=== PATIENT | female | born 1990 | race Caucasian/White ===

== ENCOUNTER 2017-08-18 18:30 | Observation (INO) | payer OTHER ==
[~2017-08-18] VITALS: Ht 157.5 cm; Wt 59.0 kg
[2017-08-18 19:12] LABS: BASOPHILS # (AUTO) 0.1 (0.0-0.1); BASOPHILS % 0.3 % (0.0-1.0); LYMPHOCYTES # (AUTO) 0.9 (1.0-3.2); LYMPHOCYTES % 4.1 % (18.0-39.1); MEAN CORPUSCULAR HGB CONC 33.3 g/dL (31-35); MEAN CORPUSCULAR VOLUME 89.9 fL (81-99); MONOCYTES # (AUTO) 0.8 (0.2-0.8); MONOCYTES % 3.7 % (4.4-11.3); NEUTROPHILS # (AUTO) 19.6 (2.1-6.9); NEUTROPHILS % 91.2 % (38.7-80.0); PLATELET COUNT 290 x10e3/uL (140-360); RED BLOOD COUNT 4.34 x10e6/uL (3.6-5.1); RED CELL DISTRIBUTION WIDTH 13.4 % (11.7-14.4)
[2017-08-18 19:17] LABS: BILIRUBIN,URINE NEGATIVE (NEGATIVE); CLARITY,URINE SL CLOUDY (CLEAR); COLOR,URINE YELLOW (YELLOW); KETONES,URINE 2+ (NEGATIVE); LEUKOCYTE ESTERASE ,URINE NEGATIVE (NEGATIVE); NITRITE,URINE NEGATIVE (NEGATIVE); PROTEIN,URINE DIPSTICK TRACE (NEGATIVE); URINE UROBILINOGEN 0.2 mg/dL (0.2 - 1)
[2017-08-18 19:26] LABS: ALANINE AMINOTRANSFERASE 10 IU/L (0-55); ALBUMIN 4.3 g/dL (3.5-5.0); ALBUMIN/GLOBULIN RATIO 1.1 (0.8-2.0); ALKALINE PHOSPHATASE 56 IU/L (40-150); ANION GAP 12.9 mmol/L (8-16); BLOOD UREA NITROGEN 16 mg/dL (7-26); BUN/CREATININE RATIO 18 (6-25); CALCIUM 9.5 mg/dL (8.4-10.2); CARBON DIOXIDE 27 mmol/L (22-29); CHLORIDE 103 mmol/L (98-107); CREATININE, SERUM 0.89 mg/dL (0.57-1.11); EST GLOMERULAR FILTRATION RATE > 60 ML/MIN (60-); GLUCOSE 104 mg/dL (74-118); POTASSIUM 3.9 mmol/L (3.5-5.1); SODIUM 139 mmol/L (136-145)
[2017-08-18 19:30] LABS: PREGNANCY TEST, URINE NEGATIVE (NEGATIVE)
[2017-08-18 19:31] LABS: RBC,URINE 21-50 /HPF (0-5); WBC,URINE (MAN) 0-5 /HPF (0-5)
[2017-08-18 19:32] LABS: EPITHELIAL CELLS,URINE RARE /LPF
--- NOTE | 2017-08-18 21:56 | Diagnostic Imaging Report ---
EXAM: CT Abdomen and Pelvis WITHOUT contrast INDICATION: Flank pain, back pain and left-sided COMPARISON: None. TECHNIQUE: Abdomen and pelvis were scanned utilizing a multidetector helical scanner from the lung base to the pubic symphysis without administration of IV contrast. Absence of intravenous contrast decreases sensitivity for detection of focal lesions and vascular pathology. Coronal and sagittal reformations were obtained. Stone protocol is performed. IV CONTRAST: None. ORAL CONTRAST: None RADIATION DOSE: Total DLP: 212.5 mGy*cm Estimated effective dose: (DLP x 0.015 x size factor) mSv COMPLICATIONS: None FINDINGS: LINES and TUBES: None. LOWER THORAX: Unremarkable HEPATOBILIARY: No focal hepatic lesions. No biliary ductal dilation. GALLBLADDER: No radio-opaque stones or sludge. No wall thickening. SPLEEN: No splenomegaly. PANCREAS: No focal masses or ductal dilatation. ADRENALS: No adrenal nodules KIDNEYS/URETERS: No hydronephrosis. No cystic or solid mass lesions. 2 mm stone visualized in the inferior renal collecting system of the right kidney, best seen on series 3, image 60 and coronal image 45 GI TRACT: No abnormal distention, wall thickening, or evidence of bowel obstruction. Appendix is not clearly identified. There is however no fat stranding or adenopathy in the right lower quadrant to suggest appendicitis. PELVIC ORGANS/BLADDER: Unremarkable. LYMPH NODES: No lymphadenopathy. VESSELS: Unremarkable. PERITONEUM / RETROPERITONEUM: No free air or fluid. BONES: Levoscoliosis of the lower lumbar spine SOFT TISSUES: Bilateral breast implants are partially visualized. IMPRESSION: 1. Right-sided nephrolithiasis without hydronephrosis. 2. No tomographic abnormality to explain left-sided flank pain Signed by: Dr. Dane Negron M.D. on 08/18/2017 9:53 PM
[2017-08-18] MEDS ORDERED: KETOROLAC TROMETHAMINE 30 MG/ML VIAL IV STA (22:01)
[2017-08-18] MEDS ORDERED: ONDANSETRON HCL INJ 2 MG/ML VIAL IV STA (22:01)
[2017-08-18] MEDS ORDERED: CEFTRIAXONE SOD 1 GM VIAL IV STA (22:01)
[2017-08-18] MEDS ORDERED: SODIUM CHLORIDE 0.9% 1000ML 1,000 ML IV ONE (22:15)
[2017-08-18] MEDS ORDERED: ONDANSETRON HCL INJ 2 MG/ML VIAL IV PRN (22:30)
[2017-08-18] MEDS ORDERED: CEFTRIAXONE SOD 1 GM VIAL IV SCH (22:30)
[2017-08-18] MEDS ORDERED: HYDROMORPHONE 1MG/1ML INJ IV PRN (22:30)
[2017-08-18] MEDS ORDERED: ACETAMINOPHEN 325 MG TAB PO PRN (22:30)
[2017-08-18] MEDS: SODIUM CHLORIDE 0.9% 1000ML 1,000 ML IV SCH (23:08)
[2017-08-19] VITALS (7 sets, daily range): BP systolic 99–183; BP diastolic 52–81
[2017-08-19 07:07] LABS: BASOPHILS # (AUTO) 0.1 (0.0-0.1); BASOPHILS % 0.6 % (0.0-1.0); EOSINOPHILS # (AUTO) 0.1 (0.0-0.4); EOSINOPHILS % 1.2 % (0.0-6.0); HEMOGLOBIN 10.9 g/dL (12.0-16.0); LYMPHOCYTES % 22.1 % (18.0-39.1); MEAN CORPUSCULAR HGB CONC 32.1 g/dL (31-35); MEAN CORPUSCULAR VOLUME 90.4 fL (81-99); MONOCYTES # (AUTO) 0.7 (0.2-0.8); MONOCYTES % 7.6 % (4.4-11.3); NEUTROPHILS # (AUTO) 6.2 (2.1-6.9); NEUTROPHILS % 67.9 % (38.7-80.0); PLATELET COUNT 216 x10e3/uL (140-360); RED BLOOD COUNT 3.76 x10e6/uL (3.6-5.1); RED CELL DISTRIBUTION WIDTH 13.8 % (11.7-14.4)
[2017-08-19 07:33] LABS: ALANINE AMINOTRANSFERASE 10 IU/L (0-55); ALBUMIN 3.2 g/dL (3.5-5.0); ALBUMIN/GLOBULIN RATIO 1.1 (0.8-2.0); ALKALINE PHOSPHATASE 45 IU/L (40-150); ANION GAP 9.8 mmol/L (8-16); BLOOD UREA NITROGEN 16 mg/dL (7-26); BUN/CREATININE RATIO 21 (6-25); CALCIUM 8.3 mg/dL (8.4-10.2); CARBON DIOXIDE 26 mmol/L (22-29); CHLORIDE 108 mmol/L (98-107); CREATININE, SERUM 0.78 mg/dL (0.57-1.11); EST GLOMERULAR FILTRATION RATE > 60 ML/MIN (60-); GLUCOSE 87 mg/dL (74-118); POTASSIUM 3.8 mmol/L (3.5-5.1); SODIUM 140 mmol/L (136-145)
[2017-08-19] MEDS: SODIUM CHLORIDE 0.9% 1000ML 1,000 ML IV SCH (09:28)
--- NOTE | 2017-08-19 17:18 | Consultation ---
DATE OF CONSULTATION: August 19, 2017 UROLOGY CONSULTATION REQUESTING SERVICE: Emergency Room. CHIEF UROLOGIC COMPLAINT/REASON FOR CONSULTATION: Kidney stone and abdominal pain. HISTORY OF PRESENT ILLNESS: Alisha Moctezuma is a 26-year-old female admitted to the hospital with severe right-sided flank and abdominal pain. She denied dysuria. Denied hematuria. Does have . PAST MEDICAL HISTORY: As above. MEDICATIONS: Please see MAR. ALLERGIES: NKDA. SOCIAL HISTORY: Denied smoking or drinking. FAMILY HISTORY: Denied urologic stones or malignancies. REVIEW OF SYSTEMS: Noncontributory other than problems mentioned above for 12 organ systems. PHYSICAL EXAMINATION: GENERAL: Young female, in no acute distress. VITALS: Temperature 97.9, pulse 89, respirations 18, and blood pressure 136/72. HEENT: Sclerae anicteric. NECK: Supple. BACK: Without costovertebral angle tenderness. ABDOMEN: Soft. It is nontender. It is nondistended. No palpable mass. No palpable hernias. No palpable lymphadenopathy. : Normal female external genitalia. EXTREMITIES: No edema. NEUROMUSCULAR: Moves extremities. SKIN: Intact. Normal color. PSYCH: Awake, alert, appropriate. PERTINENT LABORATORY DATA: CT scan revealing a 2-mm nonobstructing right kidney stone. Hemoglobin 19, hematocrit 39, platelet count 296,000, and white count 21,000. Urinalysis 21 to 50 reds, 0 to 5 whites. Sodium 139, potassium 3.9, chloride 103, bicarb 27, BUN 16, creatinine 0.89, and glucose 104. IMPRESSION: 1. Right kidney stone, nonobstructing. 2. Abdominal pain. 3. Microscopic hematuria. 4. Hypertension. 5. Leukocytosis. PLAN: From a urologic standpoint, the patient may be safely discharged to home with an outpatient trial of passage. Would have her follow up in my office in 2 to 3 weeks for a stone workup. Thank you for allowing me to participate in the care of your patient. We will be happy to follow along with you. Job#: [id number] AMY cc:Dr. Byrne
== END 2017-08-19 14:08 | disposition home or self-care (01) ==
LOC: ER 18:30 → ERHOLD 22:41 → IMCU 23:24
DX: N20.2 Calculus of kidney with calculus of ureter (principal); I10 Essential (primary) hypertension; D72.829 Elevated white blood cell count, unspecified; R31.29 Other microscopic hematuria
CPT/HCPCS: 36415 ×2; 74176; 80053 ×2; 81001; 81025; 85025 ×2; 87086; 99284; G0378 ×2; J0696; J1885; J2405; J7030 ×2